=== PATIENT | female | born 1930 | race Caucasian/White ===

== ENCOUNTER → 2017-07-10 | Outpatient (CLI) | payer MEDICARE, BC | END | disposition home or self-care (01) | LOC: HKI 14:13 | DX: M75.01 Adhesive capsulitis of right shoulder (principal) | CPT/HCPCS: 73030; 73030-RT ==

== ENCOUNTER → 2017-10-02 | Outpatient (CLI) | payer MEDICARE, BC | END | disposition home or self-care (01) | LOC: HKI 13:23 | DX: M75.01 Adhesive capsulitis of right shoulder (principal) | CPT/HCPCS: G0463 ==